=== PATIENT | male | born 1940 | race Caucasian/White ===

== ENCOUNTER 2016-09-25 07:12 | Outpatient (CLI) | payer MEDICARE, OTHER ==
[~2016-09-25] VITALS: Ht 177.8 cm; Wt 89.1 kg
--- NOTE | ~2016-09-25 | HEMODYNAMI ---
PATIENT:DIANNA ROBBINS JR MEDICAL RECORD: [id number] : 44 LOCATION:[facility] ADMISSION DATE: 09/25/16 Generatedon:09/25/20169:53 Patient name: DIANNA ROBBINS Patient #: [id number] SSN: : 1940 Date of study: 09/25/2016 Page: Of Hemodynamic Procedure Report Patient Data Patient Demographics Procedure consent was obtained First Name: DIANNA Gender: Male Last Name: ROSENDO Suffix: Patient #: [id number] : 1940 Age: 76 year(s) Accession #: Race: [id number] Additional ID: [id number] Contact details Address: [address] [place] [address] [place] State: [place] City: [place] Zip code: [address] Past Medical History Performed procedures and imaging results Date Procedure Procedure Results Comments 09/14/2016 Stress testing with Positive->Low risk SPECT MPI Allergies: No known allergies Admission Admission Data Admission Date: 09/25/2016 Admission Time: 7:12 Admit Source: Other Insurance Payor: State-specific plan, Medicare Height (in.): 70 BSA: 2.07 (m2) Height (cm.): 177.8 BMI: 28.12 (kg/m2) Weight (lbs.): 196 Weight (kg.): 88.9 Medications upon Admission Medications Dosage Times Administered Last Remarks per Delivery Day Date and Time Aspirin Yes 09/24/2016 (any) 0:00 Clopidogrel Yes 09/25/2016 0:00 Lab Results Lab Result Date: 09/25/2016 Lab Result Time: 0:00 Biochemistry Name Units Result Min Max Creatinine mg/dl 1 --(--*-)-- 0.6 1.3 CBC Name Units Result Min Max Hemoglobin g/dl 16.5 --(--*-)-- 13.5 17.5 Procedure Procedure Types Cath Procedure Diagnostic Procedure LHC LHC w/Coronaries w/Grafts Procedure Description Procedure Date Procedure Date: 09/25/2016 Procedure Start Time: 9:40 Procedure End Time: 9:52 Procedure Staff Name Function Michael Luna MD Performing Physician Robin Hall RT Scrub Richard Fregoso RN Nurse Smitha Desir RT Monitor Jason Triplett RT Processing Manager Procedure Data Cath Procedure Fluoroscopy Diagnostic fluoroscopy Total fluoroscopy Time: 1.9 time: 1.9 min min Diagnostic fluoroscopy Total fluoroscopy dose: 587 dose: 587 mGy mGy Contrast Material Contrast Material Type Amount (ml) Isovue 300 76 Entry Location Entry Primary Successful Side Size Upsize Upsize Entry Closure Succes sful Closure Location (Fr) 1 (Fr) 2 (Fr) Remarks Device Remarks Femoral Right 5 Fr Vascade artery Closure System Estimated blood loss: 5 ml Diagnostic catheters Device Type Used For End Catheter Placement Cordis 5Fr Pigtail LV Angiography Catheter (MP) Cordis 5Fr JL 4.0 Left Coronary Catheter (MP) Angiography Cordis 5Fr 3DRC Catheter Internal mammary (MP) arteriography Cordis 5Fr 3DRC Catheter Right Coronary (MP) Angiography Cordis Infinity 5Fr AR 2 SVG Angiography MOD catheter Cordis Infinity 5Fr AR 2 SVG Angiography MOD catheter Procedure Complications No complications Procedure Medications Medication Administration Route Dosage Oxygen NC 2 l/min Benadryl I.V. 50 mg Lidocaine 2% added to field 20 Heparin Flush Bag added to field 2 bags (1000units/500ml NS) 0.9% NaCl I.V. 100 ml/hr Versed I.V. 1 mg Fentanyl I.V. 50 mcg Versed I.V. 1 mg Fentanyl I.V. 50 mcg Versed I.V. 1 mg Fentanyl I.V. 50 mcg Hemodynamics Rest BSA: 2.07 (m2) HGB: 16.5 (g/dl) O2 Consumption: Estimated: 229.35 (ml/min) O2 Co nsumption indexed: Estimated:110.8 (ml/min/m) Heart Rate: 59 (bpm) Snapshots Pre Cath Intra NCS Post Cath Vital Signs Time Heart Resp SPO2 etCO2 BC0padl NIBP (mmHg) Rhythm Pain Sedation Rate (ipm) (%) (mmHg) (mmHg) Status Level (bpm) 9:20:24 62 16 97 0 0 154/78(128) NSR 0 (11) 10(A) , No pain 9:25:23 60 15 97 0 0 154/88(121) NSR 0 (11) 10(A) , No pain 9:29:41 66 13 97 0 0 152/93(119) NSR 0 (11) 10(A) , No pain 9:34:01 62 16 96 0 0 149/81(130) NSR 0 (11) 10(A) , No pain 9:38:22 65 16 99 0 0 157/80(135) NSR 0 (11) 10(A) , No pain 9:42:46 62 15 97 0 0 144/76(124) NSR 0 (11) 9(A) , No pain 9:47:04 69 16 96 0 0 146/82(126) NSR 0 (11) 9(A) , No pain 9:51:12 65 16 98 0 0 146/81(119) NSR 0 (11) 10(A) , No pain Medications Time Medication Route Dose Verified Delivered Reason Notes Effec tiveness by by 9:17:21 Oxygen NC 2 Michael Buffie used for l/min Cheryl Fregoso RN procedure 9:20:24 Benadryl I.V. 50 mg Michael Buffie used for Cheryl Fregoso RN procedure 9:25:20 Lidocaine 2% added 20ml Michael Michael for local to vial Cheryl Luna MD anesthetic field 9:25:27 Heparin Flush added 2 Michael Michael used for Bag to bags Cheryl Luna MD procedure (1000units/500ml field NS) 9:25:37 0.9% NaCl I.V. 100 Michael Buffie Per ml/hr Cheryl Fregoso RN physician 9:40:42 Versed I.V. 1 mg Michael Buffie for Cheryl Fregoso RN sedation 9:40:49 Fentanyl I.V. 50 Michael Buffie for mcg Cheryl Fregoso RN sedation 9:43:10 Versed I.V. 1 mg Michael Buffie for Cheryl Fregoso RN sedation 9:43:14 Fentanyl I.V. 50 Michael Buffie for mcg Cheryl Fregoso RN sedation 9:46:10 Versed I.V. 1 mg Michael Buffie for Cheryl Fregoso RN sedation 9:46:14 Fentanyl I.V. 50 Michael Buffie for mcg Cheryl Fregoso RN sedation Procedure Log Time Note 8:54:55 Patient allergic to No known allergies 8:54:58 Admit Source: Other 8:55:05 Insurance Payor : State-specific plan, Medicare 8:55:11 Patient Height : 70 cm 8:55:23 Patient Weight : 196 kg 8:56:14 Lab Result : Creatinine 1 mg/dl 8:56:25 Diagnostic Cath Status : Elective 8:56:53 ACC Patient presents with Stable Angina CCS Anginal Class 2--Slight limitation of ordinary activity. 8:56:55 ACCPatient has been prescribed/administered the following anti-anginal medication within the last 2 weeks: None 8:56:57 Time tracking: Regular hours 8:57:01 Plan of Care:Hemodynamics will remain stable., Cardiac rhythm will remain stable., Comfort level will be maintained., Respiratory function will remain adequate., Patient/ family verbilizes understanding of procedure., Procedure tolerated without complication., Recovers from procedure without complications.. 8:57:16 H&P Date Dictated: 08/31/2016 Within 30 days and on chart., H&P Addendum completed by physician on day of procedure. (MUST COMPLETE FOR ALL OUTPATIENTS). 8:57:20 ACC The patient was administered the following blood thiners within the last 24 hours: ACCAspirin, ACCPlavix 8:58:53 Jason GOODEN(R) sent for patient. Start room use. 9:10:01 Patient received from Outpatients to CCL 2 Alert and oriented. Tansferred to table in Supine position. 9:10:02 Warm blankets applied, and yamilka hugger turned on for patient comfort. 9:10:03 Correct patient and procedure confirmed by team. 9:10:04 Signed procedure consent form obtained from patient. 9:10:05 ECG and BP/O2 sat monitors applied to patient. 9:10:06 Full Disclosure recording started 9:17:21 Oxygen 2 l/min NC was given by Richard Fregoso RN; used for procedure; 9:19:15 Vital chart was started 9:19:18 Rhythm: sinus rhythm 9:20:24 Benadryl 50 mg I.V. was given by Richard Fregoso RN; used for procedure; 9:21:33 Pre-procedure instructions explained to patient. 9:21:36 Pre-op teaching completed and patient verbalized understanding. 9:21:37 Family in waiting room. 9:21:39 Patient NPO since Midnight. 9:21:42 Is the patient allergic to Iodine/contrast media? No. 9:21:46 Is patient on blood thinner?Yes 9:21:48 ACC The patient was administered the following blood thiners within the last 24 hours: ACCAspirin, ACCPlavix 9:21:54 Patient diabetic? No. 9:21:57 Previous problem with sedation/anesthesia? No ? 9:21:58 Snore? Yes 9:21:59 Sleep apnea? No 9:22:00 Deviated septum? No 9:22:01 Opens mouth fully? Yes 9:22:01 Sticks out tongue? Yes 9:22:03 Airway obstruction? No ? 9:22:05 Dentures? No ? 9:22:08 Pre procedure: right dorsailis pedis pulse 2+ Normal; easily identifiable; not easily obliterated 9:23:01 Patient pain scale 0/10 ?. 9:23:05 IV patent on arrival in left hand with 0.9% NaCl at [facility]. 9:23:14 Lab results completed and on chart. 9:23:17 Right groin area was prepped with chlora-prep and draped in sterile fashion 9:23:18 Alarms reviewed by R. N. 9:23:18 Sharps counted by scrub and verified by R.N. 9:23:45 Lab Result : Hemoglobin 16.5 g/dl 9:23:52 Use device set Femoral Dx 9:23:53 Acist Syringe opened to sterile field. 9:23:54 Bag Decanter opened to sterile field. 9:23:54 Cardinal Cath Pack opened to sterile field. 9:23:54 Terumo 5Fr Marathon Sheath opened to sterile field. 9:23:55 St Aurelio 260cm J .035 wire opened to sterile field. 9:23:56 Acist Hand Control opened to sterile field. 9:23:56 Acist Manifold opened to sterile field. 9:23:57 Cordis Infinity 5Fr Multipack catheter opened to sterile field. 9:23:58 Tegaderm 4 x 4 opened to sterile field. 9:24:07 Baseline sample Acquired. 9:25:20 Lidocaine 2% 20ml vial added to field was given by Michael Luna MD; for local anesthetic; 9::27 Heparin Flush Bag (1000units/500ml NS) 2 bags added to field was given by Michael Luna MD; used for procedure; 9::37 0.9% NaCl 100 ml/hr I.V. was given by Richard Fregoso RN; Per physician; 9::41 Physician paged 9:29:36 Zero performed for pressure channel P1 9:39:36 Final Timeout: patient, procedure, and site verified with staff and physician. All members of the team are in agreement. 9:39:38 Right groin site verified by team. 9:39:40 Physical assessment completed. ASA score P 2 - A patient with mild systemic disease as per Michael Luna MD. :39:42 Sedation plan: IV Moderate Sedation Versed, Fentanyl :40:35 Procedure started. :40:38 Local anesthetic to right femoral artery with Lidocaine 2% by Michael Luna MD.INITIAL ACCESS ONLY 9:40:42 Versed 1 mg I.V. was given by Richard Fregoso RN; for sedation; 9:40:49 Fentanyl 50 mcg I.V. was given by Richard Fregoso RN; for sedation; 9:41:11 A 5 Fr sheath was inserted into the Right Femoral artery 9:41:35 A Cordis 5Fr Pigtail Catheter (MP) was advanced over the wire and used for LV Angiography. 9:42:15 LV gram done using EDWARDS 9:42:19 EF : 50 % 9:42:22 Injector settings: Ml/sec: 7, Volume: 15, 9:42:25 Catheter removed. 9:42:33 A Cordis 5Fr JL 4.0 Catheter (MP) was advanced over the wire and used for Left Coronary Angiography. 9:43:10 Versed 1 mg I.V. was given by Richard Fregoso RN; for sedation; 9:43:14 Fentanyl 50 mcg I.V. was given by Richard Fregoso RN; for sedation; 9:43:39 Catheter removed. 9:44:01 A Cordis 5Fr 3DRC Catheter (MP) was advanced over the wire and used for Internal mammary arteriography.TO LAD 9:44:27 A Cordis 5Fr 3DRC Catheter (MP) was advanced over the wire and used for Right Coronary Angiography.TO LAD 9:44:29 Catheter removed. 9:45:27 A Cordis Infinity 5Fr AR 2 MOD catheter was advanced over the wire and used for SVG Angiography.TO CIRC AND OM 9:45:57 A Cordis Infinity 5Fr AR 2 MOD catheter was advanced over the wire and used for SVG Angiography.TO PDA/PLV 9:46:10 Versed 1 mg I.V. was given by Richard Fregoso RN; for sedation; 9:46:14 Fentanyl 50 mcg I.V. was given by Richard Fregoso RN; for sedation; 9:46:58 Catheter removed. 9:47:39 Sheath removed intact; hemostasis achieved with Vascade Closure System to the Right Femoral artery. 9:47:41 Procedure ended.(Physican Out) 9:47:53 Vascade 5Fr Closure Device opened to sterile field. 9:48:08 Fluoroscopy time 01.90 minutes. 9:48:25 Fluoroscopy dose: 587 mGy 9:48:25 Flurop Dose total: 587 9:48:32 Contrast amount:Isovue 300 76ml. 9:48:44 Insertion/operative site no bleeding no hematoma. 9:48:52 Post-op/insertion site Right Femoral artery dressed using a 4 x 4 and Tegaderm. 9:48:56 Post right femoral artery:stable, clean and dry 9:48:58 Post Procedure Pulses reassessed and unchanged 9:49:01 Post-procedure physical assessment completed. ASA score P 2 - A patient with mild systemic disease as per Michael Luna MD. 9:49:03 Post procedure rhythm: unchanged. 9:49:05 Estimated blood loss: 5 ml 9:49:06 Post procedure instruction explained to patient.Patient verbalizes understanding. 9:49:06 Patient needs reinforcement of post procedure teaching. 9:49:12 Procedure Complication : No complications 9:49:50 Procedure and supply charges have been captured, reviewed, submitted and are correct. 9:49:52 See physician's report for complete and final results. 9:52:41 Vital chart was stopped 9:52:43 Report given to Post Procedure Room. 9:52:46 Patient transfered to Post Procedure Room with Stretcher. 9:52:49 Procedure ended. 9:52:49 Full Disclosure recording stopped 9:52:56 End room use (Document Last) Device Usage Item Name Manufacture Quantity Catalog Number Hospital Part Current Minimal Lot# / Charge Number Stock Stock Serial# Code Acist Acist 1 [id number] 388012 [id number] 20 Syringe Medical Systems Inc Bag Microtek 1 [id number] 83995 [id number] 5 Decanter Medical Inc. Cardinal Cardinal 1 [id number] 15130 827352 5 Cath Pack Health Terumo Terumo 1 [id number] 346835 253308 376201 [address] St Aurelio 1 527007 911394 412752 533858 30 260cm J .035 wire Acist Acist 1 08385 668972 569486 331437 5 Hand Medical Control Systems Inc Acist Acist 1 41719 821614 451177 584483 5 Manifold Medical Systems Inc Cordis Cardinal 1 [id number] 995247 27098 525882 30 [employer] 5Fr Multipack catheter Tegaderm 3M 1 [id number] 730387 742689 5 4 x 4 Cordis Cardinal 1 [id number] 5 5Fr Health Pigtail Catheter (MP) Cordis Cardinal 1 [id number] 5 5Fr JL Health 4.0 Catheter (MP) Cordis Cardinal 1 [id number] 5 5Fr 3DRC Health Catheter (MP) Cordis Cardinal 1 [id number] 990505 755453 028239 20 [employer] 5Fr AR 2 MOD catheter Vascade Cardiva 1 [id number] 561971 64658 111945 10 5Fr Medical, Closure Inc. Device Signature Audit [place] Stage Time Signature Unsigned Intra-Procedure 09/25/2016 [place] 9:53:06 AM Counts RT(R) Signatures Monitor : [place] Signature : Counts RT Date : Time : [address] [place] [address]
[2016-09-25] MEDS ORDERED: COREG12.5 MG PO (08:09)
[2016-09-25] MEDS ORDERED: ZOCOR80 MG PO (08:09)
[2016-09-25] MEDS ORDERED: PROSCAR5 MG (08:10)
[2016-09-25] MEDS ORDERED: FLOMAX0.4 MG PO (08:10)
[2016-09-25] MEDS ORDERED: SAW PALMETTO450 MG PO (08:11)
[2016-09-25] MEDS ORDERED: FISH OIL 500 MG1 CAP PO (08:12)
[2016-09-25] MEDS ORDERED: CO Q-10200 MG PO (08:12)
[2016-09-25] MEDS ORDERED: GLUCOSAMINE & C1 CAP PO (08:13)
[2016-09-25] MEDS ORDERED: BAYER ASPIRIN325 MG PO (08:14)
[2016-09-25] MEDS ORDERED: TUMERIC (08:15)
[2016-09-25] MEDS ORDERED: PLAVIX75 MG PO (08:21)
[2016-09-25 08:30] VITALS: BP 130/92; Ht 177.8 cm; Wt 89.1 kg
[2016-09-25 08:36] LABS: CALC OSMOLALITY 283 mosm/kg (275-300); CALCIUM 9.2 mg/dL (8.5-10.1); CARBON DIOXIDE 26.5 mmol/L (21.0-32.0); CHLORIDE - SERUM 107 mmol/L (98-107); GLUCOSE 110 mg/dL (74-106); POTASSIUM - SERUM 4.5 mmol/L (3.5-5.1); SODIUM 141 mmol/L (136-145); UREA NITROGEN 17 mg/dL (7-18); eGFR NON AFRICAN AMERICAN 78 mL/min (90-120)
[2016-09-25 09:05] LABS: BASOPHILS 0.4 % (0.0-2.0); EOSINOPHILS 3.2 % (0-7); HEMATOCRIT 47.6 % (42.0-54.0); HEMOGLOBIN 16.2 g/dL (13.5-17.5); IMMATURE GRANULOCYTES 0.4 % (0-5); LYMPHOCYTES 22.1 % (15-50); MCH 29.5 pg (26.0-34.0); MCV 86.5 fL (80.0-100.0); MONOCYTES 16.2 % (2-11); NEUTROPHILS 57.7 % (40-80); RDW 13.8 % (11.5-14.5); WBC 5.2 10x3/uL (4.8-10.8)
[2016-09-25 09:07] LABS: PLATELET COUNT 167 10x3/uL (130-400)
--- NOTE | 2016-09-25 10:17 | NUR ---
1015 LYING FLAT, ROOM AIR WITH NO DISTRESS. NSR RATE 64 W NO C/O CHEST PAIN. PULSES PALP X 4. R GROIN 5F VASCADE C/D/I WITH NO HEMATOMA OR BLEEDING. TAUTH AT BEDSIDE TO SPEAK WITH FAMILY. PER LONNIE...PATIENT TO FOLLOW UP IN OFFICE IN 4MONTHS. APPT MADE FOR 01/31/17 AT 1430.
--- NOTE | 2016-09-25 10:55 | NUR ---
1045 LYING FLAT, ROOM AIR, VITALS ALL WL. R GROIN REMAINS C/D/I WITH NO HEMATOMA OR BLEEDING. WILL CONTINUE TO MONITOR CLOSELY. FAMILY AT SIDE.
--- NOTE | 2016-09-25 11:14 | NUR ---
VSS WITH CHEST PAIN DENIED 5 FR VASCADE R/GROIN CDI NO BLEEDING NO HEMATOMA NOTED. HR 62 BP 130/81 NO DISTRESS NOTED
--- NOTE | 2016-09-25 11:30 | NUR ---
5 FR VASCADE R/GROIN CDI NO BLEEDING NO HEMATOMA NOTED. CHEST PAIN IS DENIED. REPOSITIONED TO SITTING WITH HOB UP 45 DEGREES SANDWICH AND SODA TO BEDSIDE WITH TO ASSIST.
--- NOTE | 2016-09-25 11:51 | NUR ---
PIV REMOVED FROM L FOREARM WITH BANDAID APPLIED. UP TO BEDSIDE TO DRESS WITH ASSIST FROM .
--- NOTE | 2016-09-25 11:56 | NUR ---
AMBULATED TO BATHROOM TO VOID. BACK TO BEDSIDE, R GROIN REMAINS C/D/I WITH NO HEMATOMA OR BLEEDING. D/C INSTRUCTIONS DISCUSSED WITH FAMILY AND PATIENT AT BEDSIDE. WHEELED DOWN VIA WHEELCHAIR BY CATH TEAM.
--- NOTE | 2016-09-29 16:40 | OP ---
PATIENT NAME: DIANNA ROBBINS JR MEDICAL RECORD: [id number] :44 LOCATION:[facility] ADMISSION DATE: SURGEON: JOSELIN FLEMING MD DATE OF OPERATION: 09/25/2016 PROCEDURES: 1. Left heart catheterization. 2. Selective coronary angiography. 3. Left ventriculogram. 4. Vein graft angiography. 5. PADILLA angiography. INDICATION: Angina and coronary artery disease. PROCEDURE IN DETAIL: After informed consent was obtained and after detailed explanation of risks, benefits as well as alternative therapies, the patient elected to proceed with angiogram and heart catheterization. The right femoral area was prepped and draped in normal sterile fashion. The right femoral artery was cannulated via modified Seldinger technique with placement of 5-Kiswahili sheath. All catheters exchanged through this sheath. FINDINGS: The left ventriculogram was performed in standard 30-degree EDWARDS view, reveals preserved cardiac wall motion, ejection fraction 50% to 55%. SELECTIVE CORONARY ANGIOGRAPHY: 1. Left main is patent; however, the left anterior descending and left circumflex, showed that immediately occluded. 2. The right coronary is immediately occluded after the proximal segment. 3. PADILLA to the LAD is patent. 4. Vein graft to the OM1 and OM2 in a skipped fashion is patent. 5. Vein graft to the RCA, PDA and PLV in a skipped fashion is patent. OVERALL IMPRESSION: Wide patency of all vein grafts and PADILLA, preserved left ventricular function. Continue medical management of the coronary artery disease and cardiac risk factors. TRANSINT:[id number] Voice Confirmation ID: [id number] DOCUMENT ID: [id number] JOSELIN FLEMING MD at 1640 CC: [id number] DICTATION DATE: 09/25/16 0952 WHITE SHOE RAGGER: 09/25/16 1009 DEP CLI 09/25/16 [place] [id number]
== END 2016-09-25 12:11 | disposition home or self-care (01) ==
LOC: D.CATH 07:12
PROVIDERS: Internal Medicine Interventional Cardiology
DX: I25.119 Atherosclerotic heart disease of native coronary artery with unspecified angina pectoris (principal); Z95.1 Presence of aortocoronary bypass graft